=== PATIENT | female | born 2000 | race Caucasian/White ===

== ENCOUNTER 2023-02-11 13:23 | Emergency (ER) | payer SELFPAY ==
[2023-02-11 13:25] VITALS: BP 121/86; PULSE 76; RESP 16; TEMP 36.8; O2SAT 100; BMI 40.3
== END 2023-02-11 13:35 | disposition left against medical advice (07) ==
LOC: ED 13:48
DX: Z53.21 Procedure and treatment not carried out due to patient leaving prior to being seen by health care provider (principal)

== ENCOUNTER 2023-08-14 16:59 | Emergency (ER) | payer OTHER, SELFPAY ==
[2023-08-14 17:01] VITALS: BP 140/90; PULSE 107; RESP 18; TEMP 36.4; O2SAT 100; BMI 35.9
--- NOTE | 2023-08-14 17:48 | US_ITS ---
INDICATION: Vaginal Bleeding during EXAMINATION: Ultrasound US OB Transvaginal TECHNIQUE: Transvaginal (for optimal evaluation of the adnexa) pelvic ultrasound was performed. Grayscale, spectral waveform, and color flow Doppler evaluation of the adnexa. COMPARISON: No relevant prior comparison study available LMP: [May 24, 2023 FINDINGS: UTERUS: The uterus measures 15.5 cm in the craniocaudal dimension. RIGHT OVARY: 3.9 x 2.8 x 3.0 cm. Normal. LEFT OVARY: There is nonvisualization of the left ovary. FREE FLUID: None. INTRAUTERINE GESTATIONAL SAC: Single. The mean sac diameter measures 5.08 cm. POLE: Identified. The crown-rump length measures 5.47 cm . ESTIMATED GESTATION AGE: 11 weeks and 3 days. HEART MOTION: 174 bpm. PLACENTA: Not visualized due to age. SUBCHORIONIC HEMORRHAGE: None. AMNIOTIC FLUID: Qualitatively normal. US/Transvaginal w/Preg US IMPRESSION: Single live intrauterine . Estimated gestational age is 11 weeks and 3 days. Nonvisualization of the left ovary secondary to overlying bowel gas. Electronically Signed: Kimi Castro MD at 19:37 EST ,
--- NOTE | 2023-08-14 19:00 | ED.VIS.FEGU ---
HPI HPI - Female History of Present Illness Chief Complaint: Vag Bld, Preg Detail of Chief Complaint: Bright red vaginal bleeding Informant: patient Pain Pain: Negative for Pelvic Pain, Vulvar Pain or Vaginal Pain Onset: Today Context: Sudden Onset Timing: Continuous Quality: Positive for Cramping (Leg cramping) Location: RLQ and LLQ Current Severity: Mild Maximum Severity: Mild Worsened by: Movement Relieved by: Remaining Still Bleeding Issue: Positive for Vaginal bleeding; Negative for Passing clots or Passing tissue Onset: Today Context: Sudden Onset Timing: Continuous Current Severity: Mild Maximum Severity: Mild Associated Symptoms Associated Symptoms: Negative for Dysuria, Frequency, Urgency or Hematuria Test: Positive Sexually: Positive for Active P: 1 Narrative Narrative: Patient is a 23-year-old female who presents to the ED with sudden onset of bright red vaginal bleeding and very light lower abdominal cramping. Patient is who is currently 12 weeks this last menstrual period 05/24/2023. 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 Patient reports at approximately 1645 today she felt some light cramping and vaginal discharge. Patient reports upon going to the bathroom she noticed a spot of bright left blood in her underwear. Also noted bright red blood when wiping. Upon arrival to ED, patient noted blood running down both legs. Patient denies clots. Denies dizziness. Patient reports reports last intercourse 08/11/2023. Denies bleeding after intercourse. Denies dysuria, hematuria, and urinary frequency. Patient denies complications with prior . Of note patient reports nausea and 1 episode of diarrhea on 08/10/2023. Patient denies any injury. Reports increased physical activity as they have recently moved. Only abdominal surgery noted is prior . Prior similar symptoms: No Recent Illness/Hospitalization: No PFSH PFSH Medical History no medical history Allergy/AdvReac Type Severity Reaction Status Date / Time No Known Allergies Allergy Verified 08/14/23 17:01 Social History Smoking Status: Never smoker ROS ROS ED Constitutional Constitutional ED: Denies chills or fever(s) Eyes Eyes: Denies blurry vision, change in vision or diplopia Cardiovascular Cardiovascular: Denies chest pain, palpitations or racing heartbeat Respiratory/Chest Respiratory/Chest: Denies cough or dyspnea Gastrointestinal Gastrointestinal: Reports abdominal pain and other Details: Very mild lower abdominal cramping ; Denies constipation, diarrhea, nausea or vomiting Genitourinary Genitourinary ED: Denies dysuria, hematuria or urinary frequency Musculoskeletal Musculoskeletal: Denies arthralgias or myalgias Neurologic Neurologic: Denies headache(s), paresthesias or weakness EXAM Physical Exam Const Vital Signs: 08/14/23 17:01 08/14/23 19:47 Temperature 97.6 F L 97.2 F L Temperature Source Temporal Pulse Rate 107 H 97 Respiratory Rate 18 16 Blood Pressure 140/90 H 120/87 H Blood Pressure Mean 106 98 Pulse Ox 100 98 Oxygen Delivery Method Room Air Positive well nourished and well developed General Appearance ED: well developed and NAD HEENT Reports moist mucous membranes Eyes PERRL Chest Wall inspection of chest normal and palpation of chest normal Resp normal respiratory effort and clear to auscultation bilaterally Cardio regular rate, S1 normal heart sound and no murmurs GI normal to inspection, nondistended, normoactive bowel sounds, soft to palpation and non-tender Extremity normal to inspection and full ROM General Extremety ED: Negative for edema General Extremity: Negative for edema Neuro oriented x3 Sensorium / Orientation: alert Motor Exam: strength 5/5 throughout Psych mental status grossly normal Skin no rashes or lesions noted MDM MDM MDM Narrative Medical decision making narrative: hCG ordered to evaluate for . ABO ordered. Transvaginal ultrasound ordered to evaluate . History & Record Review Discussion w/independent historian: Patient and Family Lab Data Attestation: I reviewed the patient's lab results. Lab results narrative: Quantitative hCG within appropriate range for approximately 12-week . Labs: Laboratory Results - last 24 hr 08/14/23 17:55 HCG, Quant [id number] H Blood Type B POSITIVE Radiography Diagnostic Testing: Clinical Impression(s) from Imaging Studies Obstetrics Ultrasound 08/14/23 17:48 IMPRESSION: Single live intrauterine . Estimated gestational age is 11 weeks and 3 days. Nonvisualization of the left ovary secondary to overlying bowel gas. Electronically Signed: Kimi Castro MD at 19:37 EST , Management Discussion w/another healthcare provider: Other (Dr. Duarte, ED provider.) Treatment and Re-Evaluation Narrative: Upon reevaluation patient awake and alert. No acute distress noted. Patient reports going to the bathroom and moderate amount of bright red blood noted in the toilet. Denies clots. hCG within normal range for gestational age. Transvaginal ultrasound shows single intrauterine with an estimated gestational age of 11 weeks and 3 days. Patient advised to call [facility] OB tomorrow morning for follow-up. Advised to return for increased bleeding, clots, cramping. Patient agreeable with plan and will be discharged home. Discharge Plan Triage Chief Complaint: Vag Bld, Preg ED Provider: Waqas Duarte Dx/Rx/DC Orders Clinical Impression: Threatened miscarriage, First trimester , Vaginal bleeding Instructions: Miscarriage Threatened Primary Care Provider: Care Physician,No Primary Referrals: Sofy Leonardo MD [Med Staff - Active Staff] - As soon as possible Care Physician,No Primary [Primary Care Provider] - Activity Restrictions/Additional Instructions: Anytime you have vaginal bleeding first trimester is a threatened miscarriage. Your labs look good. Your ultrasound shows a single live . Pelvic rest. No sex. No heavy lifting. Follow-up with your BUILDING MAINTENANCE MECHANIC. Heavier bleeding with clots you feel worse return. Otherwise follow-up with your BUILDING MAINTENANCE MECHANIC. Tylenol for any cramping. Disposition Disposition: Home, Self Care Discharge Date/Time: 08/14/23 19:54
[2023-08-14 19:06] LABS: hCG Titer Quant., Serum 63401 mIU/mL (1-3)
[2023-08-14 19:47] VITALS: BP 120/87; PULSE 97; RESP 16; TEMP 36.2; O2SAT 98
== END 2023-08-14 19:54 | disposition home or self-care (01) ==
PROVIDERS: Emergency Provider Emergency Medicine; Visit Provider Emergency Medicine
DX: O20.0 Threatened abortion (principal); O26.891 Other specified pregnancy related conditions, first trimester; R10.30 Lower abdominal pain, unspecified; Z3A.11 11 weeks gestation of pregnancy
CPT/HCPCS: 76817; 84702; 86900; 86901; 99282; J7030; A4216

== ENCOUNTER 2024-02-25 10:08 | Inpatient (IN) | payer OTHER, SELFPAY ==
--- NOTE | 2024-02-11 10:49 | HP.PCM_ITS ---
History and Physical Date of Admission: 02/25/24 HPI: The patient is a 23 year old female presenting for pre-operative visit. She is scheduled for , for previous c/s on 02/25/24. Procedure discussed along with risks, benefits and complications. Other alternatives discussed for management. Consent form signed? Yes. 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 PNV no.95/ferrous fum/folic ac ( ORAL) Take by mouth once daily. No current facility-administered medications for this visit. ALLERGIES: Patient has no known allergies. PERSONAL HISTORY: SOCIAL HISTORY Social History Tobacco Use ? Smoking status: Never Passive exposure: Past ? Smokeless tobacco: Never Vaping Use ? Vaping Use: Never used Substance Use Topics ? Alcohol use: Not Currently Comment: rarely ? Drug use: Never FAMILY HISTORY: FAMILY HISTORY FAMILY HISTORY Problem Relation Age of Onset ? other (Pulomonary emboli) Mother ? other (current smoker) Mother ? Alcohol/Drug Father ? No Known Problems Sister ? No Known Problems Sister ? No Known Problems Sister ? No Known Problems Brother REVIEW OF SYMPTOMS: GENERAL: denies fevers or chills ENDOCRINOLOGY: has not been on steroids Cardiology : denies palpitations or chest pain Respiratory: denies SOB or cough Hematology: denies history of prolonged bleeding or easy bruising or VTE Allergy: Denies history of personal or family history of allergy to anesthesia PHYSICAL EXAMINATION: VITALS: Blood pressure 122/70, pulse 105, resp. rate 17, height 175.3 cm (5' 9), weight 124.7 kg (275 lb), last menstrual period 05/24/2023, SpO2 97%. GENERAL: The patient is well nourished, well hydrated in no acute distress. , The patient is oriented to time, place, and person. NECK: Supple. No lynphadenopathy, normal thyroid, no thyromegaly. LUNGS: Clear to auscultation bilaterally. no wheezes, rhonchi or rales HEART: Regular rate and rhythm, Normal heart sounds, and No murmurs or gallops abd- soft, nontender, gravid IMPRESSION: Estimated Date of Delivery: 02/28/24 w/ h/o previous c/s PLAN: The risks/benefits/alternatives and personal involved for the planned c- section were reviewed with the patient. Her questions were answered to her satisfaction and she desires to proceed. Consent was signed. I reviewed with her postop instructions and expectations. I have reviewed and updated past medical and surgical history, medications and allergies Assessment & Plan Assessment/Plan (1) 39 weeks gestation of : (2) Previous delivery affecting : (3) Breech position of fetus: (4) High risk multigravida in third trimester: (5) Maternal obesity syndrome in third trimester: (6) BMI 40.0-44.9, adult:
[2024-02-25] VITALS (17 sets, daily range): BP systolic 86–120; BP diastolic 55–80; PULSE 61–97; RESP 14–23; TEMP 36.2–36.8; O2SAT 97–100; BMI 41.0
[2024-02-25] MEDS: Lactated Ringers 1,000 ML 999 ML IV (10:35)
[2024-02-25 10:55] LABS: Absolute Lymphocyte Count 1.39 X10^3/uL (0.83-4.51); Absolute Neutrophil Count 4.4 X10^3/uL (2.0-7.7); Basophil# 0.03 X10^3/uL; Basophil% 0.4 % (0-1); Eosinophil# 0.25 X10^3/uL; Eosinophils% 3.7 % (0-5); Hemoglobin 9.9 g/dL (12.0-15.0); Lymphocyte # 1.39 X10^3/ul (0.83-4.51); Lymphocyte % 20.5 % (19-41); Mean Corp Hgb Conc 31.9 g/dL (32-36); Mean Corpuscular Hgb 26.3 pg (27.0-32.0); Mean Corpuscular Volume 82.4 fL (81-99); Mean Platelet Vol. 12.6 fl (6.2-12.0); Monocyte# 0.69 X10^3/uL; Monocyte% 10.2 % (0-10); NRBC Flagged by Analyzer 0 % (0-5); Neutrophil # 4.38 X10^3/uL (2.7-7.7); Neutrophil % 64.8 % (47-70); Platelet Count 226 K/mm3 (150-450); RBC Distribution Width SD 44.3 fl (35.1-43.9); Red Blood Count 3.76 M/mm3 (4.2-5.4); White Blood Count 6.8 K/mm3 (4.4-11.0)
[2024-02-25 11:36] LABS: Syphilis Antibodies Non-reactive
[2024-02-25] MEDS: Acetaminophen 500 MG Tablet 1000 MG PO ×2 (11:45→17:32)
[2024-02-25] MEDS: Sodium Citrate/Citric Acid 30 ML UDC PO (11:45)
[2024-02-25] MEDS: Lactated Ringers 1,000 ML 150 ML IV (11:47)
[2024-02-25] MEDS: Cefazolin 3 GM in 0.9% Normal Saline (100mL Bag) 100 ML IV (12:12)
--- NOTE | 2024-02-25 13:16 | EX.PCM.OBRPT ---
Assessment & Plan (1) BMI 40.0-44.9, adult: (2) Maternal obesity syndrome in third trimester: (3) High risk multigravida in third trimester: (4) Previous delivery affecting : (5) 39 weeks gestation of : Maternal Data Information Final NANDO: 02/28/24 Gestational age: 39 4/7 Details Operative Information Date of Procedure: 02/25/24 Pre-Operative Diagnosis: previous c/s, 39 weeks Post-Operative Diagnosis: same Indications for : Repeat Elective Classification: Scheduled Procedure Type: low transverse patch sander #1: Ananya Denise patch sander #2: Morris Dan [id number] Type of Anesthesia: Spinal Anesthesiologist: Masood Whitaker Special Medications: duramorph Antibiotic Given: Ancef 3 grams IV x1 Drain: Ovalle to straight drain Estimated Blood Loss: 800 Fluids Replaced: 950 Procedure Start Time: 12:38 Procedure Stop Time: 13:25 Time of Delivery: 12:43 Findings Description of Procedure: The patient was taken to the operating room. She was prepped and draped in the dorsal supine position with a leftward tilt. A Pfannenstiel skin incision was made approximately 2 cm above the symphysis pubis and carried through to underlying layer fascia with the scalpel. The fascia was incised incised in the midline and extended laterally with the Mattson scissors. The fascia was dissected off the rectus muscles with blunt and sharp dissection. The rectus muscles were in the midline and the peritoneum was entered bluntly. The peritoneal incision was stretched and the bladder blade was placed. The uterine incision was made in a low transverse fashion with the scalpel and extended superiorly and inferiorly with blunt dissection. The amniotic membranes were ruptured bluntly and clear amniotic fluid returned. The infant's head was brought to the incision in the flexed position and delivered without difficulty. The remainder of the was delivered with gentle traction and fundal pressure in the standard fashion. The mouth and nares were bulb suctioned. The cord was clamped and cut as the infant was stimulated. Cord clamping was delayed. The was handed off to the waiting nursing staff. The placenta was delivered with fundal massage and gentle traction in the standard fashion. The uterus was exteriorized and cleared of all clots and debris. The cervix was dilated with a ring forcep. The uterine incision was closed with #1 Vicryl in a running locked fashion. A second layer of the same suture was used in an imbricating fashion. The incision was examined and was found to be hemostatic. The uterus was placed back into the peritoneal cavity and hemostasis was again confirmed. The rectus muscles were examined and any bleeding was Bovie cauterized. The parietal peritoneum and rectus muscles were closed en bloc with an 0 Vicryl running suture. The rectus fascia was examined and any bleeding was Bovie cauterized and the rectus fascia was closed with #1 PDS suture in a running standard fashion. The subcutaneous tissue was examining and any bleeding was Bovie cauterized. The subcutaneous tissue was reapproximated with 3-0 Vicryl suture. The skin was closed in a subcuticular fashion by the ASSISTIVE TECHNOLOGY SPECIALIST with me present in the labor and delivery suite. I performed the remainder of the procedure with assistance. All sponge, lap, and needle counts were correct. The patient was taken to her room for recovery in a stable condition. Presentation: Positive for Vertex Amniotic Fluid Description: Clear Cord Vessel Description: 3 Vessels Cord Entanglement: None A Gender: Male ([place]) (1 minute): 9 (5 minute): 9 Delayed Cord Clamping: Yes Complications Complications: none
[2024-02-25] MEDS: Oxytocin 15 Units/NS 250ml 15 UNITS/250 ML IV.SOLN 83 UNITS IV (14:33)
[2024-02-25] MEDS: Ketorolac 30 MG/ML Syringe IV ×2 (14:35→20:30)
[2024-02-25] MEDS: Ondansetron 4 MG/2 ML Vial IV (16:22)
[2024-02-25] MEDS: Lactated Ringers 1,000 ML 100 ML IV (17:31)
[2024-02-25] MEDS: 0.9% Saline Lock 10 ML Syringe IV (20:30)
[2024-02-25] MEDS: MEASLES,MUMPS,RUBELLA VACC/PF 0.5 ML SC (22:02)
[2024-02-26] MEDS: Acetaminophen 500 MG Tablet 1000 MG PO ×5 (00:03→23:51)
[2024-02-26] MEDS: Enoxaparin 40 MG/0.4 ML Syringe SC ×3 (00:03→23:51)
[2024-02-26 00:05] VITALS: BP 125/84; PULSE 65; RESP 16; TEMP 36.2; O2SAT 100
[2024-02-26] MEDS: Ketorolac 30 MG/ML Syringe IV ×2 (02:15→09:19)
[2024-02-26] MEDS: 0.9% Saline Lock 10 ML Syringe IV ×2 (02:15→09:18)
[2024-02-26 03:53] VITALS: BP 101/71; PULSE 60; RESP 16; TEMP 36.7; O2SAT 98
[2024-02-26 06:03] LABS: Hematocrit 27.1 % (37-47); Hemoglobin 8.5 g/dL (12.0-15.0); Mean Corp Hgb Conc 31.4 g/dL (32-36); Mean Corpuscular Hgb 26.3 pg (27.0-32.0); Mean Corpuscular Volume 83.9 fL (81-99); Mean Platelet Vol. 11.9 fl (6.2-12.0); Platelet Count 165 K/mm3 (150-450); RBC Distribution Width CV 15.2 % (11.6-14.6); RBC Distribution Width SD 46.3 fl (35.1-43.9); Red Blood Count 3.23 M/mm3 (4.2-5.4); White Blood Count 7.3 K/mm3 (4.4-11.0)
--- NOTE | 2024-02-26 06:45 | PN.OBGYN_ITS ---
Subjective Subjective Patient seen at bedside. Denies headache, vision changes, SOB or CP. Ambulating and voiding without difficulty. Passing flatus. Lochia decreased. Dressing is dry and intact. Objective Data Objective Data Vital Signs: Vital Signs Temp Pulse Resp BP Pulse Ox O2 Del Method 98.1 F 60 16 101/71 98 Room Air 02/26/24 03:53 02/26/24 03:53 02/26/24 03:53 02/26/24 03:53 02/26/24 03:53 02/26/24 03:53 Oxygen Delivery Method Room Air Weight: 277 lb 12.519 oz Body Mass Index (BMI) 41.0 Intake & Output: Intake and Output for Last 24 Hours 02/24/24 02/25/24 02/26/24 23:59 23:59 23:59 Intake Total 2765 / 2765 1000 / 1000 Output Total 1300 / 1300 300 / 300 Balance 1465 / 1465 700 / 700 Lab / Micro Data Attestation: I reviewed the patient's lab results. 02/26/24 05:55 Labs: Laboratory Results - last 24 hr 02/25/24 10:35: WBC 6.8, RBC 3.76 L, Hgb 9.9 L, Hct 31.0 L, MCV 82.4, MCH 26.3 L , MCHC 31.9 L, RDW Std Deviation 44.3 H, RDW Coeff of Sherrell 15.0 H, Plt Count 226, MPV 12.6 H, Immature Gran % (Auto) 0.400, Neut % (Auto) 64.8, Lymph % (Auto) 20.5, Lamoure % (Auto) 10.2 H, Eos % (Auto) 3.7, Baso % (Auto) 0.4, Absolute Neuts (auto) 4.4, Absolute Lymphs (auto) 1.39, Nucleated RBC % 0, Syphilis Total Ab Non-reactive, Blood Type B POSITIVE, Antibody Screen NEGATIVE 02/26/24 05:55: WBC 7.3, RBC 3.23 L, Hgb 8.5 L, Hct 27.1 L, MCV 83.9, MCH 26.3 L , MCHC 31.4 L, RDW Std Deviation 46.3 H, RDW Coeff of Sherrell 15.2 H, Plt Count 165, MPV 11.9 ROS Eyes Eyes: Denies blurry vision, spots in vision or tunnel vision ENT HEENT: Denies dizziness or headache(s) Cardiovascular Cardiovascular: Reports systems reviewed and no addt'l complaints, except as documented, dizziness and dyspnea Respiratory/Chest Respiratory/Chest: Reports systems reviewed and no addt'l complaints, except as documented Gastrointestinal Gastrointestinal: Reports systems reviewed and no addt'l complaints, except as documented Genitourinary Genitourinary: Reports systems reviewed and no addt'l complaints, except as documented Neurologic Neurologic: Denies abnormal speech, dizziness, headache(s), syncope or vertigo Psychiatric Psychiatric: Reports systems reviewed and no addt'l complaints, except as documented Physical Exam Const alert and no apparent distress General Appearance: cooperative Orientation / Consciousness: awake, oriented to person and oriented to place Exam Limitations: no limitations HEENT normocephalic Eyes General Eye: normal appearance of both eyes Neck full ROM Chest Chest: symmetrical chest wall rise Resp normal respiratory effort, normal air movement and clear to auscultation bilaterally Auscultation: clear to auscultation bilaterally Cardio regular rate and regular rhythm GI normal to inspection, nondistended, normoactive bowel sounds Uterus Palpation: uterus fundus firm Extremity full ROM and no calf tenderness Skin no rashes or lesions noted Neuro oriented x3 Psych mental status grossly normal and activity/motor behavior normal Assessment & Plan (1) Status post delivery: (2) Care and examination of lactating mother: (3) BMI 40.0-44.9, adult: (4) Maternal obesity syndrome in third trimester: PLAN: Plan POD 1 Repeat C/S Increase ambulation Pain control support Anticipate discharge tomorrow
[2024-02-26 08:30] VITALS: BP 107/80; PULSE 97; RESP 16; TEMP 36.3; O2SAT 100
[2024-02-26] MEDS: Senna/Docusate Sodium 1 Tablet PO (11:54)
[2024-02-26 12:05] VITALS: BP 111/71; PULSE 79; RESP 16; TEMP 36.4; O2SAT 98
[2024-02-26] MEDS: Ibuprofen 600 MG Tablet PO ×2 (13:48→20:31)
[2024-02-26 16:00] VITALS: BP 111/79; PULSE 87; RESP 16; TEMP 36.3; O2SAT 99
[2024-02-26 20:15] VITALS: BP 110/70; PULSE 75; RESP 16; TEMP 36.2; O2SAT 99
[2024-02-27 02:00] VITALS: PULSE 72; RESP 16; TEMP 36.7; O2SAT 96
[2024-02-27] MEDS: Ibuprofen 600 MG Tablet PO ×2 (02:32→08:48)
[2024-02-27] MEDS: Acetaminophen 500 MG Tablet 1000 MG PO (05:55)
[2024-02-27 08:06] VITALS: BP 112/76; PULSE 75; RESP 16; TEMP 36.2; O2SAT 99
--- NOTE | 2024-02-27 08:26 | PCM.DC.SUM ---
Providers Date of Admission: 02/25/24 Primary Care Physician: No Primary Care Phys Reason For Visit: SCHEDULED Diagnosis Discharge Diagnosis (1) Status post delivery: Status: Acute Code(s): Z98.891 - History of uterine scar from previous surgery (2) Care and examination of lactating mother: Status: Acute Code(s): Z39.1 - Encounter for care and examination of lactating mother (3) BMI 40.0-44.9, adult: Status: Acute Code(s): Z68.41 - Body mass index [BMI] 40.0-44.9, adult (4) Maternal obesity syndrome in third trimester: Status: Acute Code(s): O99.213 - Obesity complicating , third trimester Plan POD 2 Repeat C/S Pain control support Discharge home with follow up in office this week Medications at Discharge Home Medications acetaminophen 500 mg tablet 1,000 mg (2 x 500 mg) PO Q6H #0 tabs 02/27/24 ibuprofen 600 mg tablet 600 mg PO Q6H #0 tabs 02/27/24 sennosides 8.6 mg-docusate sodium 50 mg tablet (Stimulant Laxative Plus) 1 - 2 tab PO DAILY #0 tabs 02/27/24 Hospital Course Operations section Procedures None Summary of Care Provided Minutes Spent on Discharge: 15 Hospital Course: Patient had section. Hospital course was uneventful. Physical Exam Narrative Dressing is dry and intact Const alert and no apparent distress General Appearance: cooperative and comfortable Exam Limitations: no limitations HEENT normocephalic Eyes General Eye: normal appearance of both eyes Neck full ROM General: normal visual inspection Chest Chest: symmetrical chest wall rise Resp normal respiratory effort and normal air movement Effort and Inspection: symmetric chest movement Auscultation: clear to auscultation bilaterally Cardio regular rate and regular rhythm GI normal to inspection, nondistended, normoactive bowel sounds Back/Spine normal ROM Extremity full ROM and no calf tenderness General Extremity: normal exam except as noted Skin no rashes or lesions noted Wound Narrative: Dressing is dry and intact. Neuro CN's II-XII intact bilaterally Psych mental status grossly normal Weight / BMI Weight Weight: 277 lb 12.519 oz Body Mass Index (BMI) 41.0 ABG / Lab / Microbiology Data 02/26/24 05:55 D/C Instructions Discharge Diet: No restrictions Discharge Activity: May Drive (2 weeks) and May Shower May resume sexual activity in: 6-8 weeks Weight Bearing Status: Weight bearing as tolerated Lifting Restricted to (Lbs): 25 Call your doctor if your incision/area has: Continuous Slow Oozing, Sudden Increased Bleeding, Increased Pain/ Swelling, Increased Redness, Foul Smelling Discharge and Swelling at the incision site Call your doctor if you observe: Fever of 101 or Higher, Numbness or Tingling, Using more than 1 pad per hour, Shortness of breath, Dizziness, Swelling in the ankles, Chest pain, Calf discomfort and Uncontrolled pain Suture Line Care: Avoid Pulling/Pushing Remove Dressing in: 5 days (Remove yourself or call office and schedule appointment for dressing removal.) When: 5 days for dressing removal or 2 weeks for post appointment. Meaningful Use Info Meaningful Use Meaningful Use Diagnoses (Choose all that apply): None applicable Ischemic Stroke Statin Dosing Therapy Reference: STATIN DOSE THERAPY REFERENCE: * Patients > 75 years receive moderate or high dose statin therapy. * Patients 75 years or YOUNGER should receive HIGH intensity statin dose unless contraindicated. You will be required to document reason for non-treatment if statin daily dose does not meet guidelines. HIGH DOSE STATIN THERAPY DAILY Atorvastatin > than or = to 40 mg Rosuvastatin > than or = to 20 mg Amlodipine + Atorvastatin > than or = to 2.5/40 mg Ezetimibe + Simvastatin 10/80 mg Simvastatin 80mg Discharge Plan Admission Admit Date/Time: 02/25/24 10:08 Primary Reason for Your Visit: Repeat Section Attending Provider: Sofy Leonardo Primary Care Provider: Care Physician,Iqra Primary Discharge Orders/Prescriptions Prescriptions: New acetaminophen 500 mg Tablet 1,000 mg PO Q6H Qty: 0 0RF sennosides-docusate sodium [Stimulant Laxative Plus] 8.6-50 mg Tablet 1 - 2 tab PO DAILY Qty: 0 0RF ibuprofen 600 mg Tablet 600 mg PO Q6H Qty: 0 0RF Referrals / Follow Up: Care Physician,No Primary [Primary Care Provider] - Disposition Disposition (needs filled in before D/C Order can be placed): Home, Self Care
--- NOTE | 2024-03-03 13:03 | NURSING ---
follow up phone call done. Pt doing well. Pain is minimal. Called OB doctor yesterday d/t hives on abdomen. Abdominal dressing is still on, she has an appointment tomorrow for incision check. is going well. Encouraged her to call our department if she has any questions or concerns. She really enjoyed her stay at [facility]. She loved all the nurses, they were very helpful. She especially liked the bedside report.
== END 2024-02-27 11:20 | disposition home or self-care (01) | DRG 788 ==
PROVIDERS: Admitting Provider Obstetrics & Gynecology; Referring Provider Obstetrics & Gynecology; Visit Provider Obstetrics & Gynecology
PROC: 10D00Z1 Extraction of Products of Conception, Low, Open Approach (ICD-10-PCS; CPT 59514; principal; 2024-02-25 11:45)
DX: O34.219 Maternal care for unspecified type scar from previous cesarean delivery (principal); O99.214 Obesity complicating childbirth; O32.1XX0 Maternal care for breech presentation, not applicable or unspecified; Z3A.39 39 weeks gestation of pregnancy; Z37.0 Single live birth
CPT/HCPCS: 59025; 59050; 85025; 85027; 86780; 86850; 86900; 86901; 99221; J7120; A4216; G0378; J2405

== ENCOUNTER 2025-04-11 10:11 | Inpatient (IN) | payer OTHER, SELFPAY ==
--- NOTE | 2025-03-28 12:31 | HP.PCM_ITS ---
History and Physical Date of Admission: 04/11/25 HPI: The patient is a 24 year old female presenting for pre-operative visit. She is scheduled for , for previous c/s on 04/11/25. Procedure discussed along with risks, benefits and complications. Other alternatives discussed for management. Consent form signed? Yes. ? ? PAST MEDICAL HISTORY PAST MEDICAL HISTORYDiagnosisDate?Atypical squamous cells of undetermined significance (ASCUS) on Papanicolaou smear of cervix07/31/2023?H/O wisdom tooth [id number]?History of depression08/27/2024?Kidney stone??2016/2017?Mycoplasma infection??ureaplasma invection treated 02/2023 ? ? PAST SURGICAL HISTORY PAST SURGICAL HISTORYProcedureLateralityDate? SNGL?02/25/2024? SECTION HX?2021?failure to descend ? ? ? CURRENT MEDICATIONS Current Outpatient MedicationsMedicationSigDispenseRefill?PNV no.95/ferrous fum/folic ac ( ORAL)Take by mouth once daily.???No current facility- administered medications for this visit. ? ? ALLERGIES: Patient has no known allergies. ? PERSONAL HISTORY: [SOCIAL HISTORY] [SOCIAL HISTORY] Social History Tobacco Use ? Smoking status: Never ? ? Passive exposure: Past ? Smokeless tobacco: Never Vaping Use ? Vaping status: Never Used Substance Use Topics ? Alcohol use: Not Currently ? ? Comment: rarely ? Drug use: Never ? FAMILY HISTORY: FAMILY HISTORY 0 FAMILY HISTORY ProblemRelationAge of Onset?other (Pulomonary emboli)Mother??other (current smoker)Mother??Alcohol/DrugFather??No Known ProblemsSister??No Known ProblemsSister??No Known ProblemsSister??No Known ProblemsBrother? ? ? REVIEW OF SYMPTOMS: GENERAL: denies fevers or chills ENDOCRINOLOGY: has not been on steroids Cardiology : denies palpitations or chest pain Respiratory: denies SOB or cough Hematology: denies history of prolonged bleeding or easy bruising or VTE Allergy: Denies history of personal or family history of allergy to anesthesia ? PHYSICAL EXAMINATION: ? VITALS: Blood pressure 117/79, weight 124.5 kg (274 lb 6.4 oz), last menstrual period 06/26/2024, currently . ? GENERAL: The patient is well nourished, well hydrated in no acute distress. , The patient is oriented to time, place, and person. NECK: Supple. No lynphadenopathy, normal thyroid, no thyromegaly. LUNGS: Clear to auscultation bilaterally. no wheezes, rhonchi or rales HEART: Regular rate and rhythm, Normal heart sounds, and No murmurs or gallops abd- soft, nontender, gravid ? IMPRESSION: Estimated Date of Delivery: 04/14/25 w/ previous c/s ? PLAN: The risks/benefits/alternatives and personal involved for the planned c- section were reviewed with the patient. Her questions were answered to her satisfaction and she desires to proceed. Consent was signed. I reviewed with her postop instructions and expectations. ONLY DESIRES TUBAL IF FINDINGS AT C/S would indicate she and future fetus would be at significant increased risk w/ future pregnacy ? I have reviewed and updated past medical and surgical history, medications and allergies
[2025-04-11] VITALS (13 sets, daily range): BP systolic 111–127; BP diastolic 58–88; PULSE 65–93; RESP 16; TEMP 36–36.7; O2SAT 95–100; BMI 42.3
[2025-04-11] MEDS: Lactated Ringers 1,000 ML 999 ML IV (10:55)
[2025-04-11 11:10] LABS: Hematocrit 32.6 % (37-47); Hemoglobin 10.7 g/dL (12.0-15.0); Immature Granulocytes Count 0.030 X10^3/uL (0.0-0.0); Mean Corp Hgb Conc 32.8 g/dL (32-36); Mean Corpuscular Volume 82.1 fL (81-99); Mean Platelet Vol. 12.3 fl (6.2-12.0); NRBC Flagged by Analyzer 0 % (0-5); Platelet Count 226 K/mm3 (150-450); RBC Distribution Width CV 14.6 % (11.6-14.6); RBC Distribution Width SD 42.9 fl (35.1-43.9); Red Blood Count 3.97 M/mm3 (4.2-5.4); White Blood Count 8.4 K/mm3 (4.4-11.0)
[2025-04-11 11:55] LABS: Syphilis Antibodies Nonreactive (Nonreactive)
[2025-04-11] MEDS: Lactated Ringers 1,000 ML 150 ML IV (11:56)
--- NOTE | 2025-04-11 16:35 | EX.PCM.OBRPT ---
Assessment & Plan (1) 39 weeks gestation of : (2) BMI 40.0-44.9, adult: (3) Maternal obesity syndrome in third trimester: (4) High risk multigravida in third trimester: (5) Single live : Maternal Data Information Final NANDO: 04/14/25 Gestational age: 39 4/7 Operative Report (OB) Procedure Details Date of Procedure: 04/11/25 Procedure Start Time: 15:59 Time of Delivery: 16:05 Pre-Operative Diagnosis: Repeat Elective Post-Operative Diagnosis: Same as Pre-operative diagnosis Classification: Scheduled Type of Anesthesia: Spinal Antibiotic Given: Ancef 3 grams IV x1, Zithromax 500 mg/5 mL X1 and Other (ancef given and then c/s was delayed so given another 1 gram IVPB immediately before incision) Drain: Ovalle to straight drain Estimated Blood Loss: 700 Fluids Replaced: 850 cc Findings Description of surgery: The patient was taken to the operating room. She was prepped and draped in the dorsal supine position. A Pfannenstiel skin incision was made through her prior low-transverse abdominal incision approximately 2 cm above the symphysis pubis and carried through to underlying layer fascia with the scalpel. The fascia was incised incised in the midline and extended laterally with the Mattson scissors. The fascia was dissected off the rectus muscles with blunt and sharp dissection. The rectus muscles were in the midline and the peritoneum was entered bluntly. The peritoneal incision was stretched and the bladder blade was placed. The uterine incision was made in a low transverse fashion with the scalpel and extended superiorly and inferiorly with blunt dissection. The amniotic membranes were ruptured bluntly and clear amniotic fluid returned. The 's head was brought to the incision in the flexed position and delivered without difficulty. The remainder of the infant was delivered with gentle traction and fundal pressure in the standard fashion. The mouth and nares were bulb suctioned. The cord was clamped and cut as the was stimulated. Cord clamping was delayed. The was handed off to the waiting nursing staff. The placenta was delivered with fundal massage and gentle traction in the standard fashion. The uterus was exteriorized and cleared of all clots and debris. The cervix was dilated with a ring forcep. The uterine incision was closed with #1 Vicryl in a running locked fashion and a decidual sparing fashion. A second layer of the same suture was used in an imbricating fashion to obtain hemostasis through some bleeding sinuses. 2-0 Vicryl [id number] sutures were then needed near midline sinus to obtain hemostasis. The incision was examined and was found to be hemostatic. The uterus was placed back into the peritoneal cavity and hemostasis was again confirmed. The rectus muscles were examined and any bleeding was Bovie cauterized. The parietal peritoneum and rectus muscles were closed en bloc with an 0 Vicryl running suture. The rectus fascia was examined and any bleeding was Bovie cauterized and the rectus fascia was closed with looped #1 PDS suture in a running standard fashion. The subcutaneous tissue was examining and any bleeding was Bovie cauterized. The subcutaneous tissue was reapproximated with 3-0 Vicryl suture. The skin was closed in a subcuticular fashion by the POLISHER BRASS with me present in the labor and delivery suite. I performed the remainder of the procedure with assistance. All sponge, lap, and needle counts were correct. The patient was taken to her room for recovery in a stable condition. Surgical findings: Normal uterus tubes and ovaries, 4 small subserosal fibroids largest 2 cm Presentation: Vertex Amniotic Membrane Rupture Type: Artificial Amniotic Fluid Description: Clear Placental Delivery Description: Expressed Placenta Disposition: [facility] Specimen collected: No Cord Vessel Description: 3 Vessels Cord Entanglement: None A gender: Male (1 minute): 9 (5 minute): 9 Delayed Cord Clamping: Yes Security Operations Manager geophysical laboratory supervisor: Yes Directory Compiler: Ananya Denise Tasks completed by certified first assistant: Closing and Retracting Additional podiatrist assistant?: Yes Additional Garage Door Installer #2: Gracie Vasquez Tasks completed by podiatrist assistant #2: Closing and Retracting Additional podiatrist assistant?: No Complications Complications: No Admit VTE Documentation VTE Present on Admission: No VTE Mechan Device Prophylaxis: SCD's VTE Pharm Prophylaxis Ordered: Yes
[2025-04-11] MEDS: Oxytocin 15 Units/NS 250ml 15 UNITS/250 ML IV.SOLN 83 UNITS IV (17:15)
[2025-04-11] MEDS: Ketorolac 30 MG/ML Syringe IV ×2 (17:29→23:37)
[2025-04-11] MEDS: Cefazolin 3 GM in 0.9% Normal Saline (100mL Bag) 100 ML IV (17:30)
[2025-04-11] MEDS: Cefazolin 1 GM/50 ML BAG IV (17:30)
[2025-04-11] MEDS: Azithromycin 500 MG in 0.9% Normal Saline (250mL Bag) 250 ML 250 MG IV (17:30)
--- NOTE | 2025-04-11 17:38 | NURSING ---
Upon entering c/s room #1 at 1203, emergency delivery needed for other labor and this patient moved back to PP room for delayed surgery, patient verbalized understanding.
[2025-04-12] VITALS (7 sets, daily range): BP systolic 110–131; BP diastolic 61–89; PULSE 68–97; RESP 16–17; TEMP 36.5–36.8; O2SAT 97–100
[2025-04-12] MEDS: Ketorolac 30 MG/ML Syringe IV ×2 (05:13→11:03)
[2025-04-12] MEDS: 0.9% Saline Lock 10 ML Syringe IV ×2 (05:14→11:02)
[2025-04-12 05:31] LABS: Hematocrit 32.8 % (37-47); Hemoglobin 10.7 g/dL (12.0-15.0); Mean Corp Hgb Conc 32.6 g/dL (32-36); Mean Corpuscular Volume 83.0 fL (81-99); Mean Platelet Vol. 12.1 fl (6.2-12.0); Platelet Count 205 K/mm3 (150-450); RBC Distribution Width CV 14.8 % (11.6-14.6); RBC Distribution Width SD 44.3 fl (35.1-43.9); Red Blood Count 3.95 M/mm3 (4.2-5.4); White Blood Count 10.1 K/mm3 (4.4-11.0)
--- NOTE | 2025-04-12 08:37 | PN.OBGYN_ITS ---
Subjective Subjective Pain controlled. Objective Data Objective Data Vital Signs: Vital Signs Temp Pulse Resp BP Pulse Ox O2 Del Method 97.8 F 80 16 110/61 100 Room Air 04/12/25 05:00 04/12/25 05:00 04/12/25 05:00 04/12/25 05:00 04/12/25 05:00 04/12/25 05:00 Oxygen Delivery Method Room Air Weight: 278 lb Body Mass Index (BMI) 42.3 Intake & Output: Intake and Output for Last 24 Hours 04/10/25 04/11/25 04/12/25 23:59 23:59 23:59 Intake Total 2237.5 / 2237.5 Output Total 1510 / 1510 500 / 500 Balance 727.5 / 727.5 -500 / -500 Lab / Micro Data 04/12/25 05:10 Labs: Laboratory Results - last 24 hr 04/11/25 10:55: WBC 8.4, RBC 3.97 L, Hgb 10.7 L, Hct 32.6 L, MCV 82.1, MCH 27.0, MCHC 32.8, RDW Std Deviation 42.9, RDW Coeff of Sherrell 14.6, Plt Count 226, MPV 12.3 H, Immature Gran % (Auto) 0.400, Neut % (Auto) 71.0 H, Lymph % (Auto) 16.8 L, Hendricks % (Auto) 7.2, Eos % (Auto) 4.2, Baso % (Auto) 0.4, Absolute Neuts (auto) 6.0, Absolute Lymphs (auto) 1.41, Nucleated RBC % 0, Syphilis Total Ab Nonreactive, Blood Type B POSITIVE, Antibody Screen NEGATIVE 04/12/25 05:10: WBC 10.1, RBC 3.95 L, Hgb 10.7 L, Hct 32.8 L, MCV 83.0, MCH 27.1, MCHC 32.6, RDW Std Deviation 44.3 H, RDW Coeff of Sherrell 14.8 H, Plt Count 205, MPV 12.1 H Physical Exam Const alert, oriented x3 and no apparent distress HEENT normocephalic GI soft to palpation, non-tender and non-distended GI Narrative: fundus firm, mid & below umbilicus Incision - bandage c/d/i Extremity normal to inspection and no calf tenderness Assessment & Plan (1) delivery delivered: COMMENT: POD#1 PLAN: Plan Heme - HDS. CBC reviewed. ID - AF, no signs infection. GI/ - routine care.
[2025-04-12] MEDS: Senna/Docusate Sodium 1 Tablet PO (11:02)
--- NOTE | 2025-04-12 11:13 | NURSING ---
edited delivery record to reflect c/s to populate to log and for charging purposes. CODY
[2025-04-13 02:21] VITALS: BP 117/76; PULSE 76; RESP 17; TEMP 36.4; O2SAT 99
[2025-04-13 07:55] VITALS: BP 126/70; PULSE 84; RESP 16; TEMP 36.6; O2SAT 98
--- NOTE | 2025-04-13 08:59 | PCM.DC.SUM ---
Providers Date of Admission: 04/11/25 Date of Discharge: 04/13/25 Primary Care Physician: No Primary Care Phys Reason For Visit: REPEAT C SECTION Diagnosis Discharge Diagnosis (1) delivery delivered: Status: Acute Code(s): O82 - Encounter for delivery without indication Medications at Discharge Home Medications sennosides 8.6 mg-docusate sodium 50 mg tablet (Stimulant Laxative Plus) 1 - 2 tab PO DAILY #0 tabs 02/27/24 docosahexaenoic acid 200 mg capsule ( DHA) mg PO 04/11/25 acetaminophen 500 mg tablet 1,000 mg (2 x 500 mg) PO Q6H 20 days #90 tabs 04/13/25 ibuprofen 600 mg tablet 600 mg PO Q6H 20 days #90 tabs 04/13/25 Hospital Course Operations - (Repeat low-transverse section performed on 04/11/2025) Procedures None Summary of Care Provided Minutes Spent on Discharge: 21 Hospital Course: 24-year-old multigravida female with history of previous section had an elective 39-week repeat section on 04/11/2025 without complication. On postoperative day #2 she is ambulating, urinating, tolerating regular diet without difficulty. was breast-feeding and doing well. She desired discharge home with routine instructions and prescriptions. She is to follow-up in the office within 1 week or as needed. Physical Exam Narrative Pain well-controlled. Average lochia. 2+ LE edema Const alert General Appearance: cooperative GI GI Narrative: soft, moderate distention, fundus firm, appropriately tender. Abdominal bandage clean dry and intact Weight / BMI Weight Weight: 126.099 kg Body Mass Index (BMI) 42.3 ABG / Lab / Microbiology Data 04/12/25 05:10 D/C Instructions May resume sexual activity in: 4-6 weeks Lifting Restrictions: 20 pounds Additional Activity Instructions: Nothing in the vagina for 4-6 weeks. You may return to work/school in 6 weeks. Call your doctor if your incision/area has: Continuous Slow Oozing, Sudden Increased Bleeding, Increased Pain/ Swelling, Increased Redness and Foul Smelling Discharge Call your doctor if you observe: Fever of 101 or Higher and Using more than 1 pad per hour (for 2 hours) Suture Line Care: Avoid Pulling/Pushing and Avoid Pinching/Bending Cleanse incision/area with: Keep Dressing Clean & Dry DC O2, CPAP, BIPAP Needs Home O2 Discharge instructions: No Please Follow Up With: Sofy Leonardo MD When: Call to make an appointment for an incision check in 1-2 [phone]. You will need a post check in 6 weeks. Meaningful Use Info Meaningful Use Meaningful Use Diagnoses (Choose all that apply): None applicable Discharge Plan Admission Admit Date/Time: 04/11/25 10:11 Primary Reason for Your Visit: delivery Attending Provider: Sofy Leonardo Primary Care Provider: Care Physician,Iqra Primary Discharge Orders/Prescriptions Prescriptions: Continued sennosides-docusate sodium [Stimulant Laxative Plus] 8.6-50 mg Tablet 1 - 2 tab PO DAILY Qty: 0 0RF DHA 200 mg capsule PO acetaminophen 500 mg Tablet 1,000 mg PO Q6H 20 Days Qty: 90 0RF ibuprofen 600 mg Tablet 600 mg PO Q6H 20 Days Qty: 90 0RF Referrals / Follow Up: Care Physician,No Primary [Primary Care Provider, Medical] Disposition Disposition (needs filled in before D/C Order can be placed): Home, Self Care
--- NOTE | 2025-04-13 14:24 | CASEMGMT ---
Social Work Assessment Labor and Delivery Unit Patient Address: [address] [place] [address]. [place] [address] Phone number: [phone] Date of Referral: 04/12/25 Time of Referral:? 1023 Referred By: Dr. Leonardo Date of Intervention: ??04/13/25 Time of Intervention:? 1120 Reason for Referral:? hx of depression and panic attacks Sw completed chart review and acknowledges social work consult due to maternal mental health history. Sw presented to bedside and introduced self to mother of baby (JOSE Panchal). Sw completed psychosocial assessment. History obtained from: medical records, MOB Household composition: Currently residing in the family home is MOB, father of baby (FOMelany- Maykel), their two older children: Dale (3) and Austin (1). [place] baby to be included in residence when ready for discharge. MICHEAL denies any problems with housing, stating that it is safe and secure. Patient's parent/guardian status:?MICHEAL states that she and FOMelany have been together since 2020 after meeting each other at [employer]. MOB denies and domestic violence or intimate partner violence. ? Medical History: ?MICHEAL is 24 year old female who is 3, para 2- now 3 following labor and delivery of . MICHEAL received routine care during with [facility]. MICHEAL presented to hospital for scheduled repeat on 04/11/25. Baby boy, named Anna, was born weighing 7lb 14oz with apgars of 9 and 9 at one and five minutes of life, respectfully. MICHEAL is breast feeding and states that it is going well, and baby will be followed by Dr. Bowles for pediatrics. Educational Status:? Both parents graduated from high school, no concerns with reading, learning or comprehension. Financial Status: Both parents are gainfully employed outside of the home. FOB works for [employer]) and MICHEAL works for [employer]. Infant Supplies:?? All necessary baby supplies obtained, including: car seat, safe sleep space, clothes, diapers and wipes. Childcare/Caregiver(s):? MOB and FOB will be the primary caregivers to baby Transportation:?? Both parents have their drivers license and reliable means of transportation, no barriers Programs/Agencies Involved: Parents are over income for community agencies that provide financial assistance. ??? Children Services/Legal Issues:???No history of children services involvement, no issues or concerns warranting referral to be made at this time. Behavioral Health Issues: ??Mental Health History:?MOB states that DORIS does not have any mental health diagnoses. MOB states that she has been diagnosed with anxiety, depression and OCD. MOB states that she has also had panic attacks in the past. MOB states that she is not prescribed any medication to help her manage her mental health symptoms, and she is connected to mental health counseling supports at [facility]. MOB states that she struggled the most after her first son was born. MOB reports that she mostly had intrusive anxious thoughts. MOB reports that she felt really good after her last son was born, denies having any symptoms. ?? Substance Use History: MOB denies any substance use prior to and during . ?? Family History:?MOB denies family history of substance use or significant mental health history. ? Drug Screens: No drug screens observed while completing chart review. Family/Social Stressors:? MOB denies any issues, concerns or stressors Support Systems: MICHEAL reports that DORIS's parents, her co- workers and DORIS are her biggest supports. Depression/Shaken Baby/Safe Sleeping:? Sw educated MICHEAL on signs and symptoms of baby blues and depression and anxiety. Sw explained to MICHEAL that she is more at risk for experiencing symptoms due to her mental health history. MOB expressed understanding. MOB states that counseling has really helped her to understand her her mental health triggers and how to utilize healthy appropriate coping skills. MOB states that she has learned how to use grounding techniques and recognize what is reality and when her brain is ruminating on things over and over. MOB states that her is a good support person for her and is able to recognize when she is struggling. MOB state that the plan is currently for her to be a stay at home mom and she is looking forward to her being able to stay home with her kids. Sw educated MOB on shaken baby prevention and ABCs of safe sleep. MOB expressed understanding. ASSESSMENT:? MOB and baby admitted following labor and delivery of . MOB with mental health history of anxiety, depression and panic attacks. MOB states that she really struggled with OCD afer her first son was born. MOB got connected to counseling and this significantly helped her manage her mental health symptoms when her second son was born. MICHEAL was feeding baby when sw presented to bedside. MOB was welcoming to meet with sw. MOB made and maintained eye contact and was observed to hold baby lovingly and appropriately. MOB was open regarding her mental health history and things that she has done to work on herself to better her mental health symptoms. MOB has a lot of supports in place and has obtained all necessary baby items. PLAN:? No other services requested or indicated. MOB and baby to be discharged when medically ready. Parents were provided literature regarding: signs and symptoms of baby blues and mood and anxiety disorders, Help Me Grow, shaken baby prevention, ABCs of safe sleep and a list of critical access hospital resources that are available for them should any needs present themselves. Asuncion Cavazos, LINE TESTER, PHARMACY GRADUATE INTERN
== END 2025-04-13 12:00 | disposition home or self-care (01) | DRG 788 ==
PROVIDERS: Admitting Provider Obstetrics & Gynecology; Referring Provider Obstetrics & Gynecology; Visit Provider Obstetrics & Gynecology
PROC: 10D00Z1 Extraction of Products of Conception, Low, Open Approach (ICD-10-PCS; CPT 59514; principal; 2025-04-11 11:45)
DX: O34.211 Maternal care for low transverse scar from previous cesarean delivery (principal); E66.9 Obesity, unspecified; O99.214 Obesity complicating childbirth; Z37.0 Single live birth; Z3A.39 39 weeks gestation of pregnancy
CPT/HCPCS: 59025; 59050; 85025; 85027; 86780; 86850; 86900; 86901; 99221; A4216; G0378; J2405